=== PATIENT | male | born 1950 | race Caucasian/White ===

== ENCOUNTER 2024-05-07 07:10 | Day surgery (SDC) | payer MEDICARE, MEDICAID ==
[~2024-05-07] VITALS: Ht 180.3 cm; Wt 111.4 kg
[~2024-05-07 07:10] MED LIST: ACET-1025 PO; ACID1TAB2 PO; ASCO500C17 PO; ASPI-1265 PO; CARV40CP7 PO; CHOL10006 PO; EZET10TA48 PO; FENO160T PO; FERR-119 PO; FINA5TAB11 PO; FURO20TA4 PO; GABA300T28; INSU100I29 SQ; LIRA0.6P3 SQ; MULT-1085 PO; MUPI22OI30 TOP; PANT40TA54 PO; POLY119P2 PO; ROSU40TA89 PO; SACU1TAB7 PO; gabapentin
[2024-05-07 07:54] VITALS: BP 135/69; PULSE 75; RESP 22; TEMP 97
[2024-05-07] MEDS ORDERED: propofol inj 20 ML IV ONE (07:59)
[2024-05-07 08:19] VITALS: BP 99/44; PULSE 67; RESP 17; O2SAT 98
[2024-05-07 08:28] VITALS: BP 100/52; PULSE 70; RESP 21; O2SAT 97
[2024-05-07 08:37] VITALS: BP 119/61; PULSE 71; RESP 22; O2SAT 98
[2024-05-07 08:47] VITALS: BP 128/58; PULSE 71; RESP 14; O2SAT 98
== END 2024-05-07 09:15 | disposition home or self-care (01) ==
LOC: GI LAB 07:10
PROVIDERS: ATTEND Internal Medicine Gastroenterology
DX: Z12.11 Encounter for screening for malignant neoplasm of colon (principal); K57.30 Diverticulosis of large intestine without perforation or abscess without bleeding; I25.10 Atherosclerotic heart disease of native coronary artery without angina pectoris; E11.9 Type 2 diabetes mellitus without complications; E66.9 Obesity, unspecified; G47.33 Obstructive sleep apnea (adult) (pediatric); I42.9 Cardiomyopathy, unspecified; Z86.0100 Personal history of colon polyps, unspecified; Z79.4 Long term (current) use of insulin; Z79.82 Long term (current) use of aspirin; Z79.899 Other long term (current) drug therapy; Z95.810 Presence of automatic (implantable) cardiac defibrillator; Z68.34 Body mass index [BMI] 34.0-34.9, adult; Z88.8 Allergy status to other drugs, medicaments and biological substances
CPT/HCPCS: 82948; A4620; G0105; J2704; J7030; J7060; Z7512; 45378

== ENCOUNTER 2024-05-27 20:43 | Emergency (ER) | payer MEDICARE, MEDICAID ==
[~2024-05-27] VITALS: Ht 180.3 cm; Wt 113.1 kg
[2024-05-27 21:12] VITALS: TEMP 98.2
[2024-05-27 21:13] LABS: BASOPHILS % (AUTO) 0.5 % (0-1); EOSINOPHILS # (AUTO) 0.1 X10'3 (0-0.9); HEMATOCRIT 43.5 % (42.0-52.0); HEMOGLOBIN 14.5 g/dl (14.0-17.9); LYMPHOCYTES # (AUTO) 1.1 X10'3 (1.1-4.8); LYMPHOCYTES % (AUTO) 15.5 % (21-51); MEAN CORPUSCULAR HEMOGLOBIN 31.5 PG (27.0-31.0); MEAN CORPUSCULAR HGB CONC 33.3 g/dL (33.0-36.5); MEAN CORPUSCULAR VOLUME 94.7 FL (78-98); MEAN PLATELET VOLUME 9.2 FL (7.4-10.4); MONOCYTES # (AUTO) 0.5 X10'3 (0-0.9); NEUTROPHILS # (AUTO) 5.3 X10'3 (1.8-7.7); PLATELET COUNT 170 X10'3 (140-440); RED BLOOD COUNT 4.59 X10'6 (4.70-6.10); WHITE BLOOD COUNT 7.1 X10'3 (4.5-11.0)
[2024-05-27 21:27] LABS: ALANINE AMINOTRANSFERASE 16 U/L (12-78); ALBUMIN 3.2 G/DL (3.4-5.0); ALBUMIN/GLOBULIN RATIO 0.9 (1.1-1.5); ALKALINE PHOSPHATASE 51 IU/L (46-116); ANION GAP 1 (8-16); ASPARTATE AMINO TRANSFERASE 22 U/L (10-37); BILIRUBIN,TOTAL 0.6 MG/DL (0.1-1.0); BLOOD UREA NITROGEN 27 MG/DL (7-18); BUN/CREATININE RATIO 20.5 (10.0-20.0); CALCIUM 8.3 MG/DL (8.5-10.1); CHLORIDE 104 MMOL/L (99-107); CREATININE 1.32 MG/DL (0.60-1.10); GLUCOSE 176 MG/DL (70-104); POTASSIUM 4.6 MMOL/L (3.5-5.1); SODIUM 139 MMOL/L (135-145); TOTAL CARBON DIOXIDE 34.1 MMOL/L (24-32); TOTAL PROTEIN 6.9 G/DL (6.4-8.2); eCRCL 54 ML/MIN; eGFR 53 ML/MIN
[2024-05-27] MEDS: HYDROmorphone inj. 0.5 MG/0.5 ML DISP.SYRIN IV ONE (22:24)
[2024-05-27] MEDS: ondansetron/PF 4mg/2ml inj IV ONE (22:24)
[2024-05-28] MEDS ORDERED: HYDR-3965 PO (00:15)
[2024-05-28 00:33] VITALS: BP 156/81; PULSE 78; RESP 14; O2SAT 98
== END 2024-05-28 00:38 | disposition home or self-care (01) ==
LOC: ER 20:43
DX: S20.212A Contusion of left front wall of thorax, initial encounter (principal); S00.81XA Abrasion of other part of head, initial encounter; Z88.8 Allergy status to other drugs, medicaments and biological substances; Z88.5 Allergy status to narcotic agent; Z95.0 Presence of cardiac pacemaker; Z79.899 Other long term (current) drug therapy; Z79.1 Long term (current) use of non-steroidal anti-inflammatories (NSAID); W01.198A Fall on same level from slipping, tripping and stumbling with subsequent striking against other object, initial encounter; Y93.01 Activity, walking, marching and hiking; Y92.89 Other specified places as the place of occurrence of the external cause; Y99.8 Other external cause status
CPT/HCPCS: 36415; 70450; 71045; 80053; 84484; 85025; 93005; 96374; 96375; 99285; J1171; J2405